=== PATIENT | male | born 1990 | race Native Hawaiian/Other Pacific Islander ===

== ENCOUNTER 2019-05-26 11:25 | Outpatient (CLI) | payer OTHER | END 2019-05-26 19:30 | disposition home or self-care (01) | LOC: RAD 11:25 | DX: M79.645 Pain in left finger(s) (principal) ==

== ENCOUNTER 2021-10-10 19:21 | Emergency (ER) | payer OTHER ==
[~2021-10-10] VITALS: Ht 195.6 cm; Wt 93.0 kg
[2021-10-10 20:29] LABS: PLATELET COUNT 244 K/uL (142-355)
[2021-10-10 20:38] LABS: POTASSIUM 4.5 mmol/L (3.6-5.2)
[2021-10-10] MEDS ORDERED: ONDA4TAB3 PO (22:04)
[2021-10-10 22:25] VITALS: BP 115/78; TEMP 98.1
== END 2021-10-10 22:30 | disposition home or self-care (01) ==
LOC: ED 19:21
PROVIDERS: Emergency Medicine
DX: K29.00 Acute gastritis without bleeding (principal)
CPT/HCPCS: 36415; 80053; 83690; 85027; 96360; 96372; 96374; 96375; 99284; J2405; J2550; J3490

== ENCOUNTER 2022-09-10 19:59 | Emergency (ER) | payer OTHER ==
[~2022-09-10] VITALS: Ht 195.6 cm; Wt 911.7 kg
[~2022-09-10 19:59] MED LIST: ONDA4TAB3 PO
[2022-09-10 20:10] VITALS: BP 146/73; TEMP 97.1
[2022-09-10 20:54] LABS: PLATELET COUNT 235 K/uL (142-355)
== END 2022-09-10 21:23 | disposition home or self-care (01) ==
LOC: ED 19:59
PROVIDERS: Emergency Medicine
DX: K52.89 Other specified noninfective gastroenteritis and colitis (principal)
CPT/HCPCS: 36415; 80048; 85027; 96372; 99283; J2405

== ENCOUNTER 2022-09-15 18:54 | Emergency (ER) | payer OTHER ==
[~2022-09-15] VITALS: Ht 195.6 cm; Wt 95.3 kg
[2022-09-15 21:02] VITALS: BP 117/65; TEMP 98.3
== END 2022-09-15 21:02 | disposition home or self-care (01) ==
LOC: ED 18:54
DX: L03.113 Cellulitis of right upper limb (principal)
CPT/HCPCS: 87070; 87077; 87185; 87186; 87205; 96372; 99283; J1885; J7040

== ENCOUNTER 2022-10-20 16:24 | Emergency (ER) | payer OTHER ==
[~2022-10-20] VITALS: Ht 195.6 cm; Wt 93.0 kg
[2022-10-20 16:30] VITALS: BP 115/73; TEMP 98
== END 2022-10-20 17:28 | disposition home or self-care (01) ==
LOC: ED 16:24
DX: S53.401A Unspecified sprain of right elbow, initial encounter (principal); X58.XXXA Exposure to other specified factors, initial encounter
CPT/HCPCS: 96372; 99283; J1885

== ENCOUNTER 2023-01-09 08:42 | Emergency (ER) | payer OTHER ==
[~2023-01-09] VITALS: Ht 195.6 cm; Wt 97.5 kg
[2023-01-09 09:06] LABS: PLATELET COUNT 151 K/uL (142-355)
[2023-01-09 09:16] LABS: POTASSIUM 4.1 mmol/L (3.6-5.2)
[2023-01-09 10:10] VITALS: BP 108/64; TEMP 98.1
== END 2023-01-09 10:10 | disposition home or self-care (01) ==
LOC: ED 08:42
PROVIDERS: Family Medicine
DX: U07.1 COVID-19 (principal); R51.9 Headache, unspecified; F12.90 Cannabis use, unspecified, uncomplicated
CPT/HCPCS: 36415; 80053; 85027; 87635; 96361; 96374; 96375; 99284; J1100; J1200; J2765; U0003